=== PATIENT | female | born 1950 | race Caucasian/White ===

== ENCOUNTER 2020-10-06 16:48 | Outpatient (CLI) | payer MEDICARE, BC, SELFPAY ==
--- NOTE | ~2020-10-06 | MM_ITS ---
EXAMINATION: MM screening [facility] BI w angie HISTORY: Screening mammogram TECHNIQUE: Craniocaudal and mediolateral oblique 3-D tomosynthesis images were obtained and synthetic 2-D images were generated. CAD analysis was submitted and interpreted. COMPARISON: 06/29/2011 BREAST PARENCHYMAL COMPOSITION: The breasts are almost entirely fatty. FINDINGS: A stable mass in the upper outer quadrant of the left breast has the appearance of an intra mammary lymph node and is considered benign. There is no evidence of suspicious mass, calcification, or architectural distortion to suggest malignancy in either breast. There has been no suspicious inte rval change. IMPRESSION: 1. No mammographic evidence of malignancy. 2. Recommend routine screening mammography in one year. BI-RADS Category 2: Benign finding(s). Reviewed, dictated and finalized at location A. OR [employer]
== END 2020-10-06 16:49 | disposition home or self-care (01) ==
LOC: ANHIMG 16:50
PROVIDERS: PCP Family Medicine; Visit Provider Family Medicine
DX: Z12.31 Encounter for screening mammogram for malignant neoplasm of breast (principal)
CPT/HCPCS: 77063; 77067

== ENCOUNTER 2022-07-24 01:19 | Day surgery (SDC) | payer MEDICARE, BC, SELFPAY ==
[2022-07-11 10:14] VITALS: BMI 36.3
[2022-07-24 09:15] VITALS: BP 150/95; PULSE 86; RESP 18; TEMP 36; O2SAT 99; BMI 34.4
[2022-07-24] MEDS: LACTATED RINGERS 1,000 ML 150 ML IV CONT (09:18)
--- NOTE | 2022-07-24 09:26 | PM.IMHP ---
H&P: HPI History of Present Illness Date/Time: 07/24/22 09:26 Chief Complaint: History of colon polyps Narrative: this is a 71-year-old white female patient presents for screening colonoscopy. Patient has a history of adenomatous colon polyp removed in the colon 2011. Family history is significant for colon polyps as well. Patient reports her current weight appetite bowel movements are normal. She presents today for screening colonoscopy. Review of Systems Review of Systems: Review of systems noncontributory. 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 (02/15/22) Family History Family History (Updated 05/05/19 @ 08:48 by DOCTOR UNKNOWN) Mother Family history of thyroid disease Hypertension Family history of malignant neoplasm, Onset Age: 66 Father Diabetes mellitus, Onset Age: 81 Hypertension, Onset Age: 81 Grandparent Acute myocardial infarction, Onset Age: 47 Cerebrovascular accident, Onset Age: 72 Sibling Family history of malignant neoplasm of stomach, Onset Age: 58 Family history of human immunodeficiency virus infection, Onset Age: 43 Social History Social History (Updated 01/09/22 @ 08:22 by Yanira Martins MA) Smoking status: Former smoker Additional smoking assessment comments: quit over 10 years Alcohol intake: current Alcohol use details: <1 weekly Substance use: never Substance use type: does not use Living arrangements: alone Spiritual care concerns: No Meds Home Medications and Allergies Home Medications Medication Instructions Recorded Confirmed Type biotin 10,000 mcg disintegrating 10,000 mcg PO DAILY 10/08/19 07/11/22 History tablet cholecalciferol (vitamin D3) 50 4,000 unit PO DAILY 07/27/21 07/11/22 History mcg (2,000 unit) tablet cyanocobalamin (vitamin B-12) 3,000 mcg PO DAILY 07/27/21 07/11/22 History 1,000 mcg capsule metformin 500 mg tablet,extended 1,000 mg PO BID #360 tabs 11/14/21 07/11/22 Rx release 24 hr fosinopril 40 mg tablet 40 mg PO BID #180 tabs 02/28/22 07/11/22 Rx meloxicam 15 mg tablet 15 mg PO DAILY PRN Pain #90 tabs 02/28/22 07/11/22 Rx raloxifene 60 mg tablet 60 mg PO DAILY #90 tabs 02/28/22 07/11/22 Rx simvastatin 40 mg tablet 40 mg PO DAILY #90 tabs 03/27/22 07/11/22 Rx amlodipine 5 mg tablet 5 mg PO DAILY #90 tabs 05/21/22 07/24/22 Rx hydrochlorothiazide 12.5 mg capsule 12.5 mg PO DAILY #90 caps 05/21/22 07/24/22 Rx liraglutide 0.6 mg/0.1 mL (18 mg/3 1.8 mg (0.3 mL) subcut DAILY #27 mL 05/21/22 07/11/22 Rx mL) subcutaneous pen injector ([employer] 2-Elmo) sodium,potassium,mag sulfates 17.5 See Rx Instructions PO .COMPLEX 06/25/22 07/11/22 Rx gram-3.13 gram-1.6 gram oral soln #354 mL (Suprep Bowel Prep Kit) pen needle, diabetic 32 gauge x #30 ea 07/16/22 Rx 5/32 (BD Ultra-Fine Cheyenne Pen Needle) Allergies Allergy/AdvReac Type Severity Reaction Status Date / Time Penicillins Allergy Unknown Rash Verified 07/24/22 09:12 Vital Signs Vital Signs - 24 hr 07/24/22 09:15 Temperature 96.8 F L Pulse Rate 86 Respiratory Rate 18 Blood Pressure 150/95 H Pulse Oximetry 99 Oxygen Delivery Room Air Exam Narrative: Physical exam reveals patient to be alert. Vital signs stable. HEENT exam is unremarkable. Patient is anicteric. Lungs are clear to auscultation and percussion. Heart is without murmur or extra sounds. Abdominal exam bowel sounds present soft nontender with no organomegaly. Digital external rectal exam is normal. Assessment and Plan Assessment and plan (
[2022-07-24 09:35] LABS: Glucose Point of Care 138 mg/dl (65-105)
--- NOTE | 2022-07-24 10:09 | WPDANESEPPF ---
Anes - Initial Pre Proc Eval Procedure: Operation Date: 07/24/22 10:00 Proposed Procedures p Screening Colonoscopy - Antonio Dupont MD Date/Time: 07/24/22 10:09 Surgeon: Antonio Dupont MD Pre Op Diagnosis: hx of colon polyps Patient Data Age: 71 Gender: F Height: 1.68 m Weight: 96.7 kg Last Vital Signs Temp 96.8 F L 07/24/22 09:15 Pulse 86 07/24/22 09:15 Resp 18 07/24/22 09:15 BP 150/95 H 07/24/22 09:15 Pulse Ox 99 07/24/22 09:15 O2 Del Method Room Air 07/24/22 09:15 Allergies Allergy/AdvReac Type Severity Reaction Status Date / Time Penicillins Allergy Unknown Rash Verified 07/24/22 09:12 Home Medications Medication Instructions Recorded Confirmed Type biotin 10,000 mcg disintegrating 10,000 mcg PO DAILY 10/08/19 07/11/22 History tablet cholecalciferol (vitamin D3) 50 4,000 unit PO DAILY 07/27/21 07/11/22 History mcg (2,000 unit) tablet cyanocobalamin (vitamin B-12) 3,000 mcg PO DAILY 07/27/21 07/11/22 History 1,000 mcg capsule metformin 500 mg tablet,extended 1,000 mg PO BID #360 tabs 11/14/21 07/11/22 Rx release 24 hr fosinopril 40 mg tablet 40 mg PO BID #180 tabs 02/28/22 07/11/22 Rx meloxicam 15 mg tablet 15 mg PO DAILY PRN Pain #90 tabs 02/28/22 07/11/22 Rx raloxifene 60 mg tablet 60 mg PO DAILY #90 tabs 02/28/22 07/11/22 Rx simvastatin 40 mg tablet 40 mg PO DAILY #90 tabs 03/27/22 07/11/22 Rx amlodipine 5 mg tablet 5 mg PO DAILY #90 tabs 05/21/22 07/24/22 Rx hydrochlorothiazide 12.5 mg capsule 12.5 mg PO DAILY #90 caps 05/21/22 07/24/22 Rx liraglutide 0.6 mg/0.1 mL (18 mg/3 1.8 mg (0.3 mL) subcut DAILY #27 mL 05/21/22 07/11/22 Rx mL) subcutaneous pen injector ([employer] 2-Elmo) sodium,potassium,mag sulfates 17.5 See Rx Instructions PO .COMPLEX 06/25/22 07/11/22 Rx gram-3.13 gram-1.6 gram oral soln #354 mL (Suprep Bowel Prep Kit) pen needle, diabetic 32 gauge x #30 ea 07/16/22 Rx 5/32 (BD Ultra-Fine Cheyenne Pen Needle) Laboratory Tests 07/24/22 09:24 POC Capillary Glucose 138 mg/dl H mg/dl (65-105) Patient hx anesthesia problems: none Family hx anesthesia problems: none Results Review: All pre-operative results and documents have been reviewed as part of the pre-operative evaluation. 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 (02/15/22) Family History Family History (Updated 05/05/19 @ 08:48 by DOCTOR UNKNOWN) Mother Family history of thyroid disease Hypertension Family history of malignant neoplasm, Onset Age: 66 Father Diabetes mellitus, Onset Age: 81 Hypertension, Onset Age: 81 Grandparent Acute myocardial infarction, Onset Age: 47 Cerebrovascular accident, Onset Age: 72 Sibling Family history of malignant neoplasm of stomach, Onset Age: 58 Family history of human immunodeficiency virus infection, Onset Age: 43 Social History Social History (Updated 01/09/22 @ 08:22 by Yanira Martins MA) Smoking status: Former smoker Additional smoking assessment comments: quit over 10 years Alcohol intake: current Alcohol use details: <1 weekly Substance use: never Substance use type: does not use Living arrangements: alone Spiritual care concerns: No Anes - Eval Final PreProcedure Day of Procedure 07/24/22 10:09 Patient weight: obese Heart: regular rate and rhythm Lungs: clear to auscultation Airway: Mallampati scale class II Neurological: alert and oriented Last oral intake: >/= 8 hours ASA classification: III Emergent: no Anesthetic plan: proceed Anesthesia
[2022-07-24 11:17] VITALS: BP 121/53; PULSE 65; RESP 16; O2SAT 98
[2022-07-24 11:27] VITALS: BP 121/48; PULSE 62; RESP 16; O2SAT 98
[2022-07-24 11:32] LABS: Glucose Point of Care 116 mg/dl (65-105)
[2022-07-24 11:37] VITALS: BP 127/47; PULSE 64; RESP 16; O2SAT 98
== END 2022-07-24 11:44 | disposition home or self-care (01) ==
PROVIDERS: PCP Family Medicine; Visit Provider Internal Medicine Gastroenterology
PROC: 0DJD8ZZ Inspection of Lower Intestinal Tract, Via Natural or Artificial Opening Endoscopic (ICD-10-PCS; CPT 45378; principal; 2022-07-24 10:00)
DX: Z12.11 Encounter for screening for malignant neoplasm of colon (principal); D12.5 Benign neoplasm of sigmoid colon; Z83.71 Family history of colonic polyps; K64.8 Other hemorrhoids; K57.30 Diverticulosis of large intestine without perforation or abscess without bleeding; Z79.84 Long term (current) use of oral hypoglycemic drugs; R25.1 Tremor, unspecified; Z87.891 Personal history of nicotine dependence; E66.9 Obesity, unspecified; Z68.34 Body mass index [BMI] 34.0-34.9, adult; I10 Essential (primary) hypertension
CPT/HCPCS: 45385; 82948; 88305; J2704; J7120

== ENCOUNTER 2023-02-22 14:52 | Outpatient (CLI) | payer MEDICARE, BC, SELFPAY ==
--- NOTE | ~2023-02-22 | MM_ITS ---
EXAMINATION: MM screening [facility] w angie HISTORY: Screening TECHNIQUE: Craniocaudal and mediolateral oblique 3-D tomosynthesis images were obtained and synthetic 2-D images were generated. CAD analysis was submitted and interpreted. COMPARISON: 10/06/2020 BREAST PARENCHYMAL COMPOSITION: The breasts are almost entirely fatty. FINDINGS: There is no evidence of suspicious mass, calcification, or architectural distortion to sugg est malignancy in either breast. There has been no suspicious interval change. IMPRESSION: 1. No mammographic evidence of malignancy. 2. Recommend routine screening mammography in one year. BI-RADS Category 1: Negative Reviewed, dictated and finalized at location A.
== END 2023-02-22 14:53 | disposition home or self-care (01) ==
LOC: ANHIMG 14:55
PROVIDERS: PCP Family Medicine; Visit Provider Family Medicine
DX: Z12.31 Encounter for screening mammogram for malignant neoplasm of breast (principal)
CPT/HCPCS: 77063; 77067

== ENCOUNTER → 2023-03-27 10:58 | Outpatient (CLI) | payer MEDICARE, BC, SELFPAY ==
--- NOTE | ~2023-03-27 | XR_ITS ---
Right Knee Technique: AP, lateral, and oblique views were obtained. Clinical History: Pain Findings: No fracture or dislocation is seen. Osseous alignment is anatomic. Mild tricompartmental de generative spurring is noted. Soft tissues are unremarkable. No joint effusion is seen. Impression: Mild tricompartmental degenerative spurring. Reviewed, dictated and finalized at [facility]. Impression: Mild tricompartmental degenerative spurring.
== END ==
PROVIDERS: PCP Family Medicine; Visit Provider Family Medicine
DX: M25.561 Pain in right knee (principal)
CPT/HCPCS: 73564

== ENCOUNTER 2024-04-28 15:13 | Outpatient (CLI) | payer MEDICARE, BC, SELFPAY ==
--- NOTE | ~2024-04-28 | US_ITS ---
EXAMINATION: US venous doppler LE RT DATE: 04/28/2024 15:53 INDICATION: Other specified soft tissue disorders. TECHNIQUE: Grayscale ultrasound images without and with compression and Doppler ultrasound images of the right lower extremity veins were obtained. COMPARISON: None. FINDINGS: The visualized portions of right common femoral vein, profunda (deep) femoral vein, femoral vein, pop liteal vein, peroneal veins, posterior tibial veins, and greater saphenous vein outflow are patent. IMPRESSION: 1. No deep venous thrombosis. Reviewed, dictated and finalized at location A.
== END 2024-04-28 15:14 | disposition home or self-care (01) ==
LOC: ANHIMG 15:16
PROVIDERS: PCP Family Medicine; Visit Provider Orthopaedic Surgery
DX: M79.89 Other specified soft tissue disorders (principal)
CPT/HCPCS: 93971

== ENCOUNTER 2024-06-16 12:30 | Outpatient (RCR) | payer MEDICARE, BC, SELFPAY ==
--- NOTE | 2024-05-14 09:55 | PTOPEVAL1 ---
Assessment and note entered by Eh Palacio Evaluation Information Assessment Status Evaluation Diagnosis right hip pain Onset 05/14/24 Subjective Information Pt. reports that she began developing right knee pain about 1 year ago. 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 She then began to notice pain radiating into the right coombs and down to the toes. She states that she underwent back x-ray of her low back recently that revealed lumbar stenosis and pinched nerve in her low back. she reports that her biggest complication is weakness and pain into the right leg that has lead to difficulty standing for any significant duration. She reports she cannot do her shopping due to pain in the knee and buttock with standing for just a brief period. She reports that her pain will wake her at night on occasion. She states that her goal is to improve her strength and balance enough to be able to walk through the grocery store. Reported Pain Level Pain Score 2: Self Report Assessment PT Clinical Summary Pt. is a 73 year old female who enters the clinic with right hip pain. Pt. presentation on this date is consistent with lumbar radiculopathy. She presents with lower extremity weakness, impaired gait mechanics, right leg pain, impaired postural awareness, impaired flexibility and functional decline. Continued treatment is indicated in order to improve these areas to allow for improve IADL performance and improved comfort. Plan of Care Interventions Electrical Stimulation,Gait Training,Hot Pack/Cold Pack,Manual Therapy,Neuro Re-education, Therapeutic Activities,Therapeutic Exercise PT Services Indicated Yes Treatment Frequency and 2x/week x 10 visits Duration These treatments will address the objective and functional deficits as defined above. The patient will be advanced safely and appropriately in order for the patient to progress towards his/her prior level of function. Additional exercises will be introduced and as well as a comprehensive home exercise program upon discharge, if needed, ?to ensure carryover of functional gains achieved in the clinic. This treatment plan has been reviewed and agreement upon by the patient.
--- NOTE | 2024-05-14 09:56 | OPREHPOC ---
Outpatient Therapy Plan of Care This is a Multidisciplinary Plan of Care that may contain components documented by all disciplines (PT, OT, and ST.) PT Problem 1 PT Problem #1 Knowledge Deficit PT Goal 1 Goal Pt. will be independent with a HEP addressing trunk mobility and l.e. strength. Target Visit 2 PT Problem 2 PT Problem #2 Impaired Balance PT Goal 1 Goal Pt. will improve her tinetti score to 24 or greater indicating low fall risk. Target Visit 10 PT Problem 3 PT Problem #3 Impaired Gait PT Goal 1 Goal Pt. will improve gait efficiency completing the 6 minute walk test with a distance of 600' or greater Pt. will report being able to walk through the grocery store without pain increase or having to rest. Target Visit 10 PT Problem 4 PT Problem #4 Impaired Strength PT Goal 1 Goal Pt. will present with 3+/5 right hip abduction strength in order to improve pelvic stability with standing activities. Target Visit 10
--- NOTE | 2024-06-16 13:31 | OPREHPOC ---
Outpatient Therapy Plan of Care This is a Multidisciplinary Plan of Care that may contain components documented by all disciplines (PT, OT, and ST.) PT Problem 1 PT Problem #1 Knowledge Deficit PT Goal 1 Goal Pt. will be independent with a HEP addressing trunk mobility and l.e. strength. Target Visit 2 Progress Met PT Problem 2 PT Problem #2 Impaired Balance PT Goal 1 Goal Pt. will improve her tinetti score to 24 or greater indicating low fall risk. Target Visit 10 Progress Partially Met Comment Improved PT Problem 3 PT Problem #3 Impaired Gait PT Goal 1 Goal Pt. will improve gait efficiency completing the 6 minute walk test with a distance of 600' or greater Pt. will report being able to walk through the grocery store without pain increase or having to rest. Target Visit 10 Progress Partially Met Comment Met second part. Lacking on first PT Problem 4 PT Problem #4 Impaired Strength PT Goal 1 Goal Pt. will present with 3+/5 right hip abduction strength in order to improve pelvic stability with standing activities. Target Visit 10 Progress Met
--- NOTE | 2024-06-16 13:31 | PTOPDC ---
Assessment and note entered by Jose Falk, PT Evaluation Information Assessment Status Discharge Diagnosis right hip pain Onset 05/14/24 Subjective Information Reports that she was really sore after last session. She feels that since she started she is feeling better overall. She is not waddling when she walks as much and other than last visit pain was down. She did have a bad night last night as well. She has been getting cramping pain into lateral calf and tingling in her big toe. Reported Pain Level Pain Score 2: Self Report Assessment PT Clinical Summary Patient has made some strength improvement and overall subjective progress has been made. She continues to have pelvic shifting noted with walking and functional mobility. She is comfortable and compliant with her HEP and desires to continue independently. Plan of Care PT Services Indicated Yes
== END 2024-06-16 13:40 | disposition home or self-care (01) ==
LOC: ANHGOSHPT 12:30
PROVIDERS: PCP Family Medicine; Visit Provider Orthopaedic Surgery
DX: M25.551 Pain in right hip (principal); R29.898 Other symptoms and signs involving the musculoskeletal system
CPT/HCPCS: 97014; 97110; 97116; 97140; 97161; 97530; G0283

== ENCOUNTER 2025-04-14 08:35 | Outpatient (CLI) | payer MEDICARE, BC, SELFPAY ==
--- NOTE | 2025-04-14 08:51 | ECG_ITS ---
Test Date: 2025-04-14 09:06:12 Measurements Intervals [place] Rate: 78 P: 24 TN: 147 QRS: -12 QRSD: 86 T: 39 QT: 329 QTc: 375 Interpretive Statements SINUS RHYTHM WITH OCCASIONAL VENTRICULAR PREMATURE COMPLEXES WITH OCCASIONAL SUPRAVENTRICULAR PREMATURE COMPLEXES LEFT VENTRICULAR HYPERTROPHY AND ST-T CHANGE [VOLTAGE CRITERIA PLUS ST/T ABNORMALITY] ABNORMAL ECG No previous ECG available for comparison Electronically Signed On 04-14-2025 13:12:26 CDT by Junior Ly M.D.
[2025-04-14 11:22] LABS: Anion Gap 5 mmol/L (4-12); Blood Urea Nitrogen 19 mg/dL (7-17); Calcium 9.6 mg/dL (8.4-10.2); Carbon Dioxide 32 mmol/L (22-30); Chloride 102 mmol/L (98-107); Estimated Glomerular Filt Rate > 60; Glucose 125 mg/dL (65-110); Potassium 4.1 mmol/L (3.4-5.0); Sodium 139 mmol/L (137-145)
== END 2025-04-14 08:36 | disposition home or self-care (01) ==
PROVIDERS: PCP Family Medicine; Visit Provider Anesthesiology
DX: Z01.818 Encounter for other preprocedural examination (principal); E11.9 Type 2 diabetes mellitus without complications; E78.5 Hyperlipidemia, unspecified; I10 Essential (primary) hypertension
CPT/HCPCS: 36415; 80048; 93005

== ENCOUNTER 2025-04-22 08:19 | Day surgery (SDC) | payer MEDICARE, BC, SELFPAY ==
[2025-04-13 14:02] VITALS: BMI 34.2
--- NOTE | 2025-04-15 11:58 | PC.NURSE ---
EKG reviewed per anesthesia. OK to proceed with procedure at [facility] per Dr. Silva.
--- NOTE | 2025-04-22 06:47 | WPDHPUPDATE1 ---
History and Physical Update Update Date/Time: 04/22/25 06:47 Patient seen and examined in pre-operative holding area. No interval change in medical history or symptoms. Patient recalls previous discussion of benefits and alternatives to procedure. Continues to desire to proceed with right thumb mucous cyst and osteophyte excision . Reviewed procedure, post-op expectations and risks including but not limited to bleeding, infection, injury to tendon/nerve/vessel, decreased hand function, stiffness, RSD, no change or worsening of symptoms, recurrence. I discussed the possible use of assistants and their participation in the case. Patient stated understanding and signed the consent form wishing to proceed.
--- NOTE | 2025-04-22 06:48 | P.OP_ITS ---
Procedure Note - Detailed Date of Procedure 04/22/25 Pre-op Diagnosis Mucous Cyst Right Thumb Post-op Diagnosis Same Procedure Performed excision right thumb mucous cyst and osteophyte Surgeon Francisco Bonner MD Circuit Design Engineer anshul desai pa-c Anesthesia MAC Description of Procedure INFORMED CONSENT: The patient was seen and examined and marked in the pre-op area.? The patient signed the consent form. PROCEDURE IN DETAIL:The patient taken back to OR on the stretcher in supine position. Time out performed with anesthesia, surgeon and staff agreeing on patient's name site and surgery to be performed SCDs were placed on the lower extremities and inflated. A tourniquet was placed on {right} upper extremity and antibiotics given IV After anesthesia administered sedation I injected {4}cc 1%lido and 0.5% marcaine plain for digital block in the palm The?{right upper extremity}?was prepped and draped in sterile fashion the??{right upper extremity} was? exsanguinated with Esmarch bandage and tourniquet inflated to 250mmHg I proceeded with making elliptical incision around the thinned affected skin of the right thumb mass through skin and dermis with a 15 blade scalpel. The incision was carried proximally and distally to elevate skin flaps exposing the cyst and the IP joint. I proceeded with circumferential dissection of the suspected its origin near the IP joint and this was excised with bipolar cautery. Here I identified a large osteophyte coming off the distal phalanx. I reflect the periosteum and then rongeured this osteophyte and flap. The extensor tendon was protected throughout the procedure. I irrigated with normal saline. I closed the capsular defect with 4-0 Vicryl. Was unable to close the skin defect primarily with wide undermining so I extended my incision in a curvilinear fashion proximally to create a small rotation advancement flap which was elevated and rotated to allow for closure with 4-0 chromic. A dressing of xeroform, 4x4,and tube gauze was applied after the tourniquet was let down noting the hand was warm and well perfused. The patient was then awaken from anesthesia and transferred to the recovery room in stable condition.? Complications - none EBL- 0cc Disposition - home in stable conditions Anshul Desai pa-c was essential for positioining, retraction, closure and dressing placement [facility] [place] - Charge Forward: Surgery Billing ([id number] same for anshul webb )
--- NOTE | 2025-04-22 09:06 | WPDANESEPPF ---
Anes - Initial Pre Proc Eval Procedure: Operation Date: 04/22/25 10:30 Proposed Procedures p Excision Mucous Cyst Right Thumb - Francisco Bonner MD Date/Time: 04/22/25 09:06 Surgeon: Francisco Bonner MD Pre Op Diagnosis: Mucous Cyst Right Thumb Patient Data Age: 74 Gender: F Height: 1.6 m Weight: 87.8 kg Allergies Allergy/AdvReac Type Severity Reaction Status Date / Time Penicillins AdvReac Intermediate Rash Verified 04/22/25 09:05 Home Medications ?Medication ?Instructions ?Recorded ?Confirmed ?Type cyanocobalamin (vitamin B-12) 3,000 mcg PO DAILY 07/27/21 04/22/25 History 1,000 mcg capsule metformin 500 mg tablet,extended 1,000 mg (2 x 500 mg) PO BID #360 08/28/24 04/22/25 Rx release 24 hr tabs fosinopril 40 mg tablet 40 mg PO BID #180 tabs 11/09/24 04/22/25 Rx raloxifene 60 mg tablet 60 mg PO DAILY #90 tabs 11/09/24 04/22/25 Rx simvastatin 40 mg tablet 40 mg PO DAILY #90 tabs 11/09/24 04/22/25 Rx cholecalciferol (vitamin D3) 50 5,000 unit PO DAILY 12/17/24 04/22/25 History mcg (2,000 unit) tablet amlodipine 5 mg tablet 5 mg PO DAILY #90 tabs 01/21/25 04/22/25 Rx hydrochlorothiazide 12.5 mg capsule 12.5 mg PO DAILY #90 caps 01/21/25 04/22/25 Rx liraglutide 0.6 mg/0.1 mL (18 mg/3 1.8 mg (0.3 mL) subcut DAILY #27 mL 01/21/25 04/22/25 Rx mL) subcutaneous pen injector (Victoza 2-Elmo) pen needle, diabetic 32 gauge x #30 ea 04/12/25 Rx 32 diclofenac sodium 50 mg 50 mg PO BID #60 tabs 04/16/25 04/22/25 Rx tablet,delayed release tramadol 50 mg tablet 50 mg PO Q6H PRN pain #12 tabs 04/22/25 Rx Patient hx anesthesia problems: post op nausea/vomiting Family hx anesthesia problems: none Results Review: All pre-operative results and documents have been reviewed as part of the pre-operative evaluation. [facility] Past Medical History Medical History (Updated 04/22/25 @ 09:07 by Rashaun Mcintyre DO) Hypertension Branching hyphae of kingdom fungi detected Hyperlipidemia Ganglion cyst of finger of right hand (~01/2025) ganglion cyst extensor surface distal phalanx right thumb 0.7 cm. BMI 34.0-34.9,adult Herpes zoster (07/07/24) right T11 dermatome BMI 33.0-33.9,adult Carpal tunnel syndrome of left wrist Chronic low back pain with right-sided sciatica x-ray of the lumbar spine on 05/10/2023 with advanced spondylosis with scoliosis. MRI ordered by orthopedic surgeon July, with spondylosis worse at L3-L4. Right knee pain (~12/2022) X-ray of the right knee 03/27/2023 with mild tricompartmental osteoarthritis. Acute non-recurrent maxillary sinusitis At moderate risk for fall (~09/2022) tripped over dog. No problems with balance BMI 35.0-35.9,adult Obesity (BMI 30-39.9) Nonproliferative diabetic retinopathy of both eyes (02/15/22) Mild nonproliferative diabetic retinopathy both eyes 02/15/2023. Mild nonproliferative retinopathy on 02/27/2024. Benign essential tremor chronic essential tremor of the head and neck BMI 37.0-37.9, adult Cataract Adult BMI 36.0-36.9 kg/sq m Breast cancer screening by mammogram Normal mammogram 02/22/2023. Chronic low back pain with left-sided sciatica Body mass index (BMI) of 38.0 to 38.9 in adult Surgical History Surgical History H/O cataract extraction History of hysterectomy History of sinus surgery Family History Family History Mother Family history of thyroid disease Hypertension Family history of malignant neoplasm, Onset Age: 66 Father Diabetes mellitus, Onset Age: 81 Hypertension, Onset Age: 81 Grandparent Acute myocardial infarction, Onset Age: 47 Cerebrovascular accident, Onset Age: 72 Sibling Family history of malignant neoplasm of stomach, Onset Age: 58 Family history of human immunodeficiency virus infection, Onset Age: 43 Social History Social History Smoking status: Former smoker Tobacco type: cigarettes Second hand tobacco smoke exposure: Yes Alcohol intake: current Alcohol use details: <1 weekly Substance use: never Substance use type: does not use Do You Feel Safe in your Home?: Yes Lack of Transportation: No Lack of Food: Never True Current Housing: I Have Housing Concerned About Future Housing: No Difficulty Paying Gas/Electric Bills: No Difficulty Paying for Meds: No Currently Unemployed: No Education: Bachelor's Degree Difficulty w/ Childcare or Family Care: No Living arrangements: alone Occupation/Education: retired 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 Informed Consent: The patient's anesthetic plan and its attendant risks and benefits were discussed with the patient/family/POA. Questions were solicited and answers provided to the satisfaction of the patient/family/POA.
[2025-04-22 09:07] VITALS: BP 148/60; PULSE 57; RESP 15; TEMP 36.6; O2SAT 100; BMI 34.7
[2025-04-22 09:35] LABS: Glucose Point of Care 121 mg/dl (65-105)
[2025-04-22] MEDS: LACTATED RINGERS 1,000 ML 30 ML IV CONT (09:38)
[2025-04-22] MEDS: ceFAZolin SODIUM 2 GM/20 ML SW SYRINGE IV PUSH (10:36)
[2025-04-22] MEDS: BUPivacaine HCL 0.5% PF 30 ML VIAL INFILTRATE (10:57)
[2025-04-22] MEDS: LIDOCAINE 1% LOCAL INJ 20 ML VIAL INFILTRATE (10:58)
[2025-04-22 11:07] VITALS: BP 97/50; PULSE 60; RESP 14; O2SAT 100
[2025-04-22 11:17] VITALS: BP 84/51; PULSE 56; RESP 15; O2SAT 97
[2025-04-22 11:27] VITALS: BP 106/60; PULSE 62; RESP 15; O2SAT 96
[2025-04-22 11:37] VITALS: BP 123/53; PULSE 55; RESP 15; O2SAT 97
--- NOTE | 2025-04-22 11:44 | WPDANESPN ---
Anes - Prog Note Post-Op Date/Time: 04/22/25 11:44 Cardiovascular status: normal Respiratory status: normal Airway patency: baseline Mental status: baseline Post-Op hydration status: normal Vital Signs: Last Vital Signs Temp 36.6 C 04/22/25 09:07 Pulse 56 L 04/22/25 11:17 Resp 15 04/22/25 11:17 BP 84/51 L 04/22/25 11:17 Pulse Ox 97 04/22/25 11:17 O2 Del Method Room Air 04/22/25 11:17 Pain Score (VAS): 0 I/O: Intake & Output 04/21/25 04/22/25 04/22/25 23:59 07:59 15:59 Intake Total 300 Balance 300 04/22/25 09:25 POC Capillary Glucose 121 H Post-procedural complaints: none Patient Feedback: Patient satisfied with anesthetic care. Other Findings: Patient vital signs back to baseline. Patient denies nausea and vomiting. Patient's pain under control. Patient OK for discharge.
== END 2025-04-22 11:47 | disposition home or self-care (01) ==
PROVIDERS: PCP Family Medicine; Visit Provider Plastic Surgery
PROC: (CPT 26210; principal; 2025-04-22 10:30)
DX: M67.441 Ganglion, right hand (principal); M25.741 Osteophyte, right hand
CPT/HCPCS: 26210; 14040

== ENCOUNTER 2025-04-22 10:04 | Outpatient (NON) | payer MEDICARE, BC, SELFPAY ==
--- NOTE | 2025-04-22 | S_PTH ---
PATIENT: Karlee Clemons LOC: [facility] U#:[id number] AGE/SX: 74/F ROOM: RE04/22/[address]: Francisco Bonner MD : [id number] BED: DIS: 04/22/2025 SPEC #: [id number] RECD: 04/23/25 10:05 STATUS: SULLY REDez #: [id number] KATE: 04/22/25 00:[address]: Francisco Bonner DEPT: [facility] Surgical RECD BY: Thu Cabrera ENTERED: 04/23/25 10:10 SP TYPE: Surgical OTHR DR: Sae Person MD Tissues: A - Cyst B - Bone Procedures: Hematoxylin and Eosin Stain Gross and Microscopic Level 4 Decalcification
== END 2025-04-22 10:05 | disposition home or self-care (01) ==
LOC: ANHLAB 04-23 10:05
PROVIDERS: PCP Family Medicine; Visit Provider Plastic Surgery
DX: M67.449 Ganglion, unspecified hand (principal)
CPT/HCPCS: 88305; 88311

== ENCOUNTER 2025-08-11 13:08 | Outpatient (CLI) | payer MEDICARE, BC, SELFPAY ==
--- OUTSIDE RECORDS SUMMARY | 2025-06-09 09:00 | XMS_ITS | Continuity of Care Document ---
Author Organization [facility] Address [address] [place] [phone] Phone Care Team Providers Care Auto Electrical Technician Name Role Phone Clementina Bravo MD Unavailable Unavailabl e Allergies, Adverse Reactions, Alerts Substance Reaction Status Criticality Sulfa (Sulfonamide Antibiotics) Active No Information erythromycin base Active No Informa tion Medications Medication Instructions Dosage Effective Dates (start - stop) Status Comments Vitamin D3 10 mcg (400 unit) capsule take by oral route every day - Active meloxicam 15 mg tablet TAKE 1 TABLET BY MOUTH DAILY - Active vitamin B complex tablet take by oral route every day - Active Vitamin C 500 mg tablet take 1 by oral r oute every day 1 - Active albuterol sulfate HFA 90 mcg/actuation aerosol inhaler INHALE 2 PUFFS INTO LUNGS EVERY 6 HOURS NEEDED FOR SHORTNESS OF BREATH - Active ezetimibe 10 mg tablet TAKE 1 TABLET BY MOUTH ONCE DAILY - Active buspirone 10 mg tablet TAKE 1 TABLET BY MOUTH TWICE DAILY - Active levothyroxine 100 mcg tablet TAKE 1 TABLET BY MOUTH ONCE DAILY ON AN EMPTY STOMACH IN THE MORNING - Active Procedures Procedure Date NEG SCRN DEP SYMP BY DEPTOOL PT-FOCUSED HLTH RISK ASSMT EYE EXAM & TREATMENT Advance Directives Directive Yes / No Effective Date File Name No Information Encounters Encounter Description Practice Location Reason(s) For Visit Diagnoses Date Provider [facility], [address] [place] [address], [id number], [place] tel:[phone] [facility] blurry vision (chief complaint)fl oaters and flashes (chief complaint) Encounter for screening for depression, adultAge-related nuclear cataract, bilateralVitreous degeneration, bilateral Lawrence Mcrae. [address], [place], [place], [id number], [place]. tel:[phone] [facility], [address] [place] [address], [id number], [place] tel:[phone] [facility] 6 mo dilated exam (chief complaint) Age-related nuclear cataract, bilateral Lawrence Mcrae. [address], [place], [place], [id number], [place]. tel:[phone] [facility], [address] [place] [address], [id number], [place] tel:[phone] [facility] Blurry Vision (chief complaint) Age-related nuclear cataract, bilateral Lawrence Mcrae. [address], [place], [place], [id number], [place]. tel:[phone] [facility], [address] [place] [address], [id number], [place] tel:[phone] [facility] complete dilated exam decreased vision (chief complaint)fl oaters (chief complaint) Age-related nuclear cataract, bilateral Lawrence Mcrae. [address], [place], [place], [id number], [place]. tel:[phone] [facility], [address] [place] [address], [id number], [place] tel:[phone] [facility] No Information Lawrence Mcrae. [address], [place], [place], [id number], [place]. tel:[phone] Family History Family Member Type Diagnosis Age At Onset Father Problem Hypertension Father Problem Cancer, unknown type Mother Problem Cancer, breast Sister Problem Cancer, breast Payers Payer name Insurance type Covered democrat ID Jeniffer gonzalez(s) [employer] Medicare Advantage CI [id number] Social History Type Description Quantity Date Captured Comments Alcohol Use Details Unknown Caffeine Use Details Unknown Tobacco Use Status Current non-smoker Smoking Status Never smoker Non-Smoking Tobacco Use Details : No Details Available : No Details Available Sex Female Chief Complaint And Reason For Visit From encounter dated '06/09/2025 14:00'. blurry vision (chief complaint). Description: The 74 year old client presents for evaluation of blurry vision. Patient states when watching tv she is unable to read the captions/subtitles. No double vision, distortion, waviness. floaters and flashes (chief complaint). Description: The patient is present for evaluation of floaters and flashes. Patient states she thinks she has had flashes and floaters within the past 6 months. Patient states she has had a black curtain over right eye couple of months ago and went away. Plan Of Treatment Date Type Action Status Appointment Karlee Claudio BOOKED Patient Education Dilated Retinal Exam: A bout This Test completed History Of Present Illness Encounter Date Complaint History Of Prese nt Illness blurry vision The 74 year old client presents for evaluation of blurry vision. Patient states when watching tv she is unable to read the captions/subtitles. No double vision, distortion, waviness. floaters and flashes The patient is present for evaluation of floaters and flashes. Patient states she thinks she has had flashes and floaters within the past 6 months. Patient states she has had a black curtain over right eye couple of months ago and went away. 6 mo dilated exam The 74 year ol d client presents for evaluation of 6 mo dilated exam. Patient states its getting more difficult to see the letters on the tv. Patient states a curtain comes over vision and has only happened twice. Denies eye pain. Blurry Vision The 73 year old client presents for evaluation of Blurry Vision. 6 month cataract eval. Patient states vision is the same. Patient states new glasses are improving the vision. Patient has a difficult time driving at night. Patient states she has halos when driving at night. Patient denies eye pain and flashes of light. ongoing floaters, has improved complete dilated exa m decreased vision The 73 year old client presents for evaluation of complete dilated exam decreased vision. Patient states she has difficulty with night driving and seeing street signs. Patient states she thinks the left eye is a little worse than the right eye. Patient states she thinks she struggles more with the distance then the near vision. floaters The patient is p resent for evaluation of floaters. Patient thinks the floaters are in both eyes and states that she also has flashes periodically. Patient states she does not notice a curtain in her vision. Instructions Date Instruction Additional Jcarlosr jase Return in 1 year wit josey Pierre for Dilated Exam. Related to Vitreous degeneration, bilateral Impression/Plan - Ca taracts account for the patient's complaints. No treatment currently recommended. The patient will monitor vision changes and contact us with any decrease in vision. Related to Age-related nuclear cataract, bilateral Impression/Plan - Po sterior vitreous detachment accounts for the patient's complaints. There is no evidence of retinal pathology. All signs and risks of retinal detachment and tears were discussed in detail. Patient instructed to call the office immediately if any symptoms noted. Recommend the patient return to office for follow up. Related to Vitreous degeneration, bilateral Return in 6 months w antionette Pierre for Cataract Eval. Related to Age-related nuclear cataract, bilateral Impression/Plan - Ca taracts account for the patient's complaints. No treatment currently recommended. The patient will monitor vision changes and contact us with any decrease in vision. Related to Age-related nuclear cataract, bilateral Impression/Plan - Ca taracts account for the patient's complaints. No treatment currently recommended. The patient will monitor vision changes and contact us with any decrease in vision. Related to Age-related nuclear cataract, bilateral Return in 6 months w antionette Pierre for Cataract Eval. Related to Age-related nuclear cataract, bilateral Impression/Plan - Ca taracts account for the patient's complaints. No treatment currently recommended. The patient will monitor vision changes and contact us with any decrease in vision. New glasses Rx was given today. Related to Age-related nuclear cataract, bilateral Assessments Type Assessment Date assessment Encounter for screening for depr ession, adult assessment Age-related nuclear cataract, bi lateral assessment Vitreous degeneration, bilateral impression Vitreous degeneration, bilateral : H43.813 impression Age-related nuclear cataract, bi lateral: H25.13
--- NOTE | ~2025-08-11 | DEXA_ITS ---
Bone Density Report Name: PABLO MURCIA Age: 74 Sex: Female Ethnicity: White Date of : 1950 Indication: postmenopausal; screening for osteoporosis; height loss; hysterectomy; Referring Provider: MARIA DOLORES GORDON Study: Bone densitometry was performed. Exam Date: August 11, 2025 Accession number: [id number] Bone Density: Region BMD T-score Z-score Classification AP Spine(L1-L4) 1.141 0.9 3.3 Normal Femoral Neck (Left) 0.699 -1.4 0.8 Osteopenia Total Hip (Left) 0.992 0.4 2.3 Normal Femoral Neck (Right) 0.849 0.0 2.2 Normal Total Hip (Right) 0.890 -0.4 1.4 Normal Total Hip Mean 0.941 0.0 1.9 Normal World Health Organization criteria for BMD impression classify patients as: Normal (T-score at or above -1.0), Osteopenia (T-score between -1.0 and -2.5), or Osteoporosis (T-score at or below -2.5). 10-year Fracture Risk(1): Major Osteoporotic Fracture 11% Hip Fracture 1.9% Reported Risk Factors: [place] (), Neck BMD=0.699, BMI=35.2 (1) FRAX(R) Version 3.08. Fracture probability calculated for an untreated patient. Fracture probability may be lower if the patient has received treatment. Clinical Information Provided by Patient: Has used the following medications: Vitamin D Has the following medical conditions: Hysterectomy Patient maximum height was 66.0 Menopause Age: 33 No regular weight bearing exercise Drinks caffeinated beverages Onset of menses at age 11 Number of children 0 Impression: The patient has low bone mass, based on the Left Femoral Neck T-score. The patient has an estimated ten-year risk of hip fracture of 1.9% and an estimated ten-year risk of major fracture of 11%, based on the WHO FRAX algorithm. Discussion: BONE DENSITY IS LOW AT ONE OR MORE SKELETAL SITES. This patient's lowest T-score is low at one or more skeletal sites. It meets the World Health Organization's (WHO) criteria for ?low bone mass? (T-score between -1.0 and -2.5). The patient's 10-year risk of fracture as calculated by FRAX is less than the threshold where pharmacological therapy is recommended by the National Osteoporosis Foundation (NOF). However, all treatment decisions require clinical judgment and consideration of individual patient factors, including patient preferences, comorbidities, previous drug use, risk factors not captured in the FRAX model (e.g., frailty, falls, vitamin D deficiency, increased bone turnover, interval significant decline in bone density) and possible under or overestimation of fracture risk by FRAX. The patient should follow a healthful lifestyle (good nutrition with adequate calcium and vitamin D, and appropriate weight-bearing exercise). Follow-Up: Consider repeating this study in 2 to 3 years to reassess this patient's status, or sooner if there is some new clinical indication. Reported by: JANENE on 08/11/2025 1:48:00 PM. Reviewed, dictated and finalized at location A.
== END 2025-08-11 13:09 | disposition home or self-care (01) ==
LOC: ANHFOHIMG 13:09
PROVIDERS: PCP Family Medicine; Visit Provider Family Medicine
DX: M85.852 Other specified disorders of bone density and structure, left thigh (principal); Z78.0 Asymptomatic menopausal state
CPT/HCPCS: 77080